=== PATIENT | female | born 1990 | race Two or more races ===

== ENCOUNTER 2019-08-28 19:26 | Emergency (ER) | payer OTHER ==
--- NOTE | 2019-08-28 22:41 | ER Document Report ---
HPI - HPI Time Seen by Provider: 08/28/19 22:17 Pain Level: Denies Context: Patient is a 29-year-old female that comes emergency department for chief complaint of possible exposure to COVID-19. She states that she has been around a coworker who came to work every day who had her child test positive for COVID- 19 over the past day. 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 She vapes, does not smoke, denies , takes no daily medications, denies any past medical history. - CONSTITUTIONAL Constitutional: DENIES: Fever, Chills - REPRODUCTIVE Reproductive: DENIES: : Past Medical History - General Information source: Patient - Social History Smoking Status: Current Every Day Smoker - vape Chew tobacco use (# tins/day): No Frequency of alcohol use: None Drug Abuse: None Lives with: Family Family History: Reviewed & Not Pertinent Patient has homicidal ideation: No - Medical History Medical History: Negative - Immunizations Immunizations up to date: Yes Hx Diphtheria, Pertussis, Tetanus Vaccination: Yes Vertical Provider Document - CONSTITUTIONAL General Appearance: WD/WN, No Apparent Distress - HEENT HEENT: Atraumatic, Normal ENT Exam, Normocephalic - NECK Neck: Normal Inspection - RESPIRATORY Respiratory: Breath Sounds Normal, No Respiratory Distress - CARDIOVASCULAR Cardiovascular: Regular Rate, Regular Rhythm - GI/ABDOMEN Gastrointestinal: Abdomen Soft, Abdomen Non-Tender. negative: Abdomen Tender - BACK Back: Normal Inspection - MUSCULOSKELETAL/EXTREMETIES Musculoskeletal/Extremeties: MAEW, FROM, Non-Tender - NEURO Level of Consciousness: Awake, Alert, Appropriate Motor/Sensory: No Motor Deficit, No Sensory Deficit - DERM Integumentary: Warm, Dry, No Rash Course - Re-evaluation Re-evalutation: Patient here for testing after COVID exposure, she has no current symptoms, unremarkable vital signs, provided with [facility] testing, follow-up instructions, return precautions. Discharge - Discharge Clinical Impression: Exposure to COVID-19 virus Condition: Stable Disposition: HOME, SELF-CARE Additional Instructions: You have been tested for COVID-19, you will be contacted with your results and for additional instructions. Please perform quarantine until you are contacted over the next 2 to 3 days or so. Return for any concerning symptoms including difficulty breathing, vomiting, spiking fevers, or any other concerning or worsening symptoms. See instructions in regards to this listed below. As a person under investigation for COVID-19, the [facility] (division on public health) advises you to adhere to the following guidance until your test results are reported to you. If your test result is positive, you will receive additional information from your provider and your local health department at that time. Remain at home until you are cleared by the health provider or public health authorities. Keep a log of visitors to your home, notify any visitors to your home of your isolation status. If you plan to move to a new address or leave the [facility], notify the local health department in your County. Call your Doctor or seek care if you have an urgent medical need. Before seeking medical care, call him to get instructions from the provider before arriving at the medical office, clinic, or hospital. Notify them that you are being tested for the virus (COVID-19) so that arrangements can be made, as necessary, to prevent transmission to others in the healthcare setting. Next, notify the local health department in your county. If a medical emergency arises and you need to call 911, inform the first responders that you are being tested for the virus that causes COVID-19. Next, n otify the local health department in your county. Forms: Return to Work
[2019-08-28 23:03] VITALS: BP 140/94
== END 2019-08-28 23:31 | disposition home or self-care (01) ==
LOC: ER 19:26
DX: Z20.828 Contact with and (suspected) exposure to other viral communicable diseases (principal); F17.290 Nicotine dependence, other tobacco product, uncomplicated
CPT/HCPCS: 99283; 87635; C9803